=== PATIENT | female | born 1935 | race Caucasian/White ===

== ENCOUNTER 2017-06-28 09:59 | Inpatient (IN) | payer MEDICARE ==
--- NOTE | 2017-06-28 12:07 | CON ---
DATE OF CONSULTATION: 06/28/2017 REASON FOR CONSULTATION: Left hip pain. HISTORY OF PRESENT ILLNESS: This is a very pleasant woman who is 82 years of age, she got out of bed today and fell onto her left hip. PAST MEDICAL HISTORY: Positive for hypertension, high cholesterol, dementia. SOCIAL HISTORY: Does not smoke. She does not drink. She has excellent social support. She is a ho usehold only ambulator with the assistance of a walker. MEDICATIONS: Listed in the chart. PHYSICAL EXAMINATION: GENERAL: Shows a pleasant woman who is in no distress. She is actually able to answer some question s, but seems to be fairly confused. HEENT: Normocephalic, atraumatic. LUNGS: Clear. HEART: Regular rate and rhythm. ABDOMEN: Soft, nontender. EXTREMITIES: Left hip shows shortening external rotation, tender to manipulation, she has intact DP and PT pulses. No skin lesions. IMAGING DATA: Radiographs show a displaced femoral neck fracture. PLAN: Hemiarthroplasty of hip. She and her family understand risk of infection, stiffness, nerve or blood vessel damage, blood clots, transfusion, , dislocation and would like to proceed with waldo valladares.
[2017-06-28] MEDS ORDERED: CEFAZOLIN/Water 2 GM/20 ML SYRINGE ONE (12:13)
[2017-06-28] MEDS ORDERED: Vancomycin HCl 1.5 GM in Sodium Chloride 0.9% 250 ML 300 ML IVPB SCH (12:30)
[2017-06-28] MEDS ORDERED: Sodium Chloride 0.9% 1,000 ML IV SCH ×2 (12:30→18:20)
[2017-06-28 12:43] LABS: PTT 30.5 SEC (22.9-36.1); Prothrombin Time 13.3 SEC (12.0-14.7)
[2017-06-28] MEDS ORDERED: Tranexamic Acid 1,000 MG/100 ML BAG ONE (13:37)
[2017-06-28] MEDS ORDERED: Fentanyl 100 MCG/2 ML VIAL ONE ×2 (13:57→14:11)
[2017-06-28] MEDS ORDERED: Ondansetron ODT 4 MG TAB PO PRN ×2 (15:54→15:58)
[2017-06-28] MEDS ORDERED: Milk Of Magnesia 30 ML UDCUP PO PRN ×2 (15:54→15:58)
[2017-06-28] MEDS ORDERED: Bisacodyl 10 MG SUPP PR PRN ×2 (15:54→15:58)
[2017-06-28] MEDS ORDERED: Cepastat Lozenges 1 LOZ PO PRN ×2 (15:54→15:58)
[2017-06-28] MEDS ORDERED: Ondansetron HCl/PF 4 MG/2 ML Vial IVP PRN ×3 (15:54→16:11)
[2017-06-28] MEDS ORDERED: Fleet Enema 133 ML BOT PR PRN ×2 (15:54→15:58)
[2017-06-28] MEDS ORDERED: Fentanyl 100 MCG/2 ML VIAL SLOW IVP PRN (15:54)
[2017-06-28] MEDS ORDERED: Aspirin 81 mg Enteric Coated Tablet PO SCH (16:00)
[2017-06-28] MEDS ORDERED: Tranexamic Acid 1,000 MG in Sodium Chloride 0.9% 100 ML IVPB SCH (16:00)
[2017-06-28] MEDS ORDERED: D5 1/2 NS w/20 mEq KCL 1,000 ML IV SCH (16:00)
[2017-06-28] MEDS ORDERED: Promethazine HCl 25 MG/ML VIAL IM PRN (16:11)
[2017-06-28] MEDS ORDERED: Promethazine HCl 25 MG/ML VIAL SLOW IVP PRN (16:11)
--- NOTE | 2017-06-28 16:14 | CON ---
DATE OF SERVICE: 06/28/2017 TRAUMA CONSULT Please see Anais Worley NP complete history of present illness. BRIEF HISTORY: This is an 82-year-old female who sustained a left hip fracture and a fall and transf erred to [facility] for higher level of care. Hemodynamically stable. No other complaints. She is confused, which makes the history difficulty. She is unsure of her home medications or chronic medic al history. PHYSICAL EXAMINATION: GENERAL: She is awake and alert, although confused. CHEST: Bilateral clear. HEART: Regular rate and rhythm. BREAST: She has obvious right mastectomy in the past. ABDOMEN: Soft, tenderness in the left hip. EXTREMITIES: Left lower extremity shortened, externally rotated, but palpable radial and palpable do rsalis pedis pulses. No obvious limb threatening ischemia. ASSESSMENT: Left hip fracture. PLAN: Plan per ortho, trauma to admit. See Anais Worley NP note.
--- NOTE | 2017-06-28 17:26 | RAD ---
TWO VIEWS OF THE LEFT HIP: INDICATION: Post-op left hip. COMPARISON: Two views of the left hip dated 06/28/2017. FINDINGS: Since the comparison examination, there has been interval placement of a left hip endoprosthesis. Th e prosthetic component projects in the expected position. IMPRESSION: Postoperative left hip. POS: NASEEM
--- NOTE | 2017-06-28 17:30 | HP ---
DATE OF ADMISSION: 06/28/2017 ADMITTING PHYSICIAN: Dr. Hiren Hayward. CONSULTING PHYSICIAN: Dr. Sravan Soni, Orthopedic. HISTORY OF PRESENT ILLNESS: An 82-year-old female, who was in her usual state of health this morning when she apparently had a fall getting out of bed. She lives at home with her daughter and daughter reports that she heard her mother fall and then went to the bedroom and found her on the floor. She was complaining of left hip pain. She was transported by ambulance to [facility], where left hip fracture was identified. She was then transferred to [place] for higher level of care. She is now seen in the ER, by Trauma Services. She complains of pain to the left hip. She has been hemodynamically stable. Neurologically, she has remained at baseline. Pain is worse with movement of left leg. The patient's pain is relieved by nothing. She is unable to quantify the pain or describe the quality of the pain. REVIEW OF SYSTEMS: The patient is unable to participate with review of systems due to baseline dementia. PAST MEDICAL HISTORY: Diabetes type 2, hypertension, dementia. PAST SURGICAL HISTORY: Right mastectomy, hysterectomy, cholecystectomy, unknown years. SOCIAL HISTORY: Family denies intake of alcohol, drugs or tobacco. Patient lives at home with her daughter. FAMILY HISTORY: Unknown. ALLERGIES: No known drug allergies. CURRENT MEDICATIONS: 1. Losartan 25 mg once daily. 2. Metformin 500 mg once daily. 3. Citalopram 20 mg once daily. 4. Hydrochlorothiazide 12.5 mg once daily. 5. Temazepam 15 mg once daily. PHYSICAL EXAMINATION: VITAL SIGNS: Blood pressure 152/72, pulse 73, respirations 22, temperature 98.3 , and O2 sat 98%. CONSTITUTIONAL: Elderly female in no acute distress. Lying on bed. Able to answer questions, but remains confused. HEENT: Atraumatic, normocephalic. RESPIRATORY: Respirations even and unlabored. Expiratory wheezes heard in bilateral upper lobes. CARDIOVASCULAR: Regular rate and rhythm. Heart sounds normal. ABDOMEN: Soft, nontender, nondistended. Bowel sounds present. EXTREMITIES: With the exception of the left lower extremities are free from visible trauma. Cap refill is brisk. Neurovascularly intact. Left lower extremity pain with movement or palpation to left lateral hip area, rotated laterally. Pulses 2+. NEUROLOGIC: GCS 14. [id number]. ASSESSMENT: 1. An 82-year-old female status post ground level fall. 2. Left displaced femoral neck fracture. PLAN: 1. Admit to hospital by Trauma Services. 2. Consult to Orthopedics, Dr. Soni. Dr. Soni currently at bedside. 3. OR today with Dr. Soni. 4. N.p.o. until after operative procedure. 5. Hospital medicine consult for general medical management. Assessment and plan of care were discussed with the patient, her daughter, and her family at bedside. All are in agreement. The patient was seen and examined with attending trauma surgeon, Dr. Tolu Hayward, who agrees with the assessment and plan of care. VIRGEN
[2017-06-28] MEDS ORDERED: Dextrose 5% in Water 1,000 ML IV PRN (18:20)
[2017-06-28] MEDS ORDERED: Dextrose 50% Abboject 50 ML SYRINGE SLOW IVP PRN (18:20)
[2017-06-28] MEDS ORDERED: Acetaminophen 1,000 MG in Premix Bag 1 BAG IVPB SCH (20:00)
[2017-06-28] MEDS ORDERED: Famotidine/PF 20 mg/2ml Vial SLOW IVP SCH (21:00)
[2017-06-28] MEDS ORDERED: Senokot S 8.6-50 MG TAB PO SCH (21:00)
[2017-06-28] MEDS ORDERED: Ferrous Gluconate 324 MG TAB PO SCH (21:00)
[2017-06-28] MEDS: traMADol HCl 50 MG TAB PO PRN (21:12)
[2017-06-28] MEDS: Senokot S 8.6-50 MG TAB PO SCH (21:12)
[2017-06-28] MEDS: Ferrous Gluconate 324 MG TAB PO SCH (21:13)
[2017-06-28] MEDS: CEFAZOLIN/Water 2 GM/20 ML SYRINGE SLOW IVP SCH (21:18)
[2017-06-28] MEDS: Ondansetron HCl/PF 4 MG/2 ML Vial IVP PRN (21:29)
[2017-06-28] MEDS: Sodium Chloride 0.9% 1,000 ML IV SCH (23:04)
[2017-06-28] MEDS: Acetaminophen 500 MG TAB PO SCH (23:28)
[2017-06-29] MEDS: CEFAZOLIN/Water 2 GM/20 ML SYRINGE SLOW IVP SCH (03:24)
[2017-06-29] MEDS: traMADol HCl 50 MG TAB PO PRN ×2 (04:07→20:12)
[2017-06-29] MEDS: Ondansetron HCl/PF 4 MG/2 ML Vial IVP PRN ×2 (04:11→17:36)
[2017-06-29 05:29] LABS: #Lymphocytes 0.5 thou/uL (1.20-3.40); #Monocytes 0.4 thou/uL (0.11-0.59); #Neutrophils 6.4 thou/uL (1.40-6.50); %Basophils 0.3 % (0.0-1.0); %Eosinophils 0.1 % (0.0-10.0); %Lymphocytes 7.2 % (21.0-51.0); %Monocytes 4.9 % (0.0-10.0); %Neutrophils 87.5 % (42.0-75.0); Mean Corpuscular HGB CONC 32.9 g/dL (32.0-36.0); Mean Corpuscular Hemoglobin 28.6 pg (27.0-31.0); Mean Corpuscular Volume 86.9 fl (81.0-99.0); Mean Platelet Volume 7.5 fL (7.4-10.4); Platelet Count 133 thou/uL (130-400); RBC Distribution Width 13.5 % (11.5-14.5); Red Blood Cell (RBC) Count 3.49 mill/uL (4.20-5.40); White Blood Cell (WBC) Count 7.3 thou/uL (4.8-10.8)
[2017-06-29 05:34] LABS: Mean Corpuscular HGB CONC 32.4 g/dL (32.0-36.0); Mean Corpuscular Hemoglobin 28.1 pg (27.0-31.0); Mean Corpuscular Volume 86.9 fl (81.0-99.0); Mean Platelet Volume 7.8 fL (7.4-10.4); Platelet Count 140 thou/uL (130-400); RBC Distribution Width 13.6 % (11.5-14.5); Red Blood Cell (RBC) Count 3.54 mill/uL (4.20-5.40); White Blood Cell (WBC) Count 7.3 thou/uL (4.8-10.8)
[2017-06-29 05:45] LABS: Anion Gap 16 mmol/L (10-20); BUN (Urea Nitrogen) 28 mg/dL (9.8-20.1); Calc. Creatinine Clearance 24 mL/min (70-130); Calcium 9.3 mg/dL (7.8-10.44); Carbon Dioxide 18 mmol/L (23-31); Chloride 109 mmol/L (98-107); Estimated GFR-MDRD 26; Glucose 116 mg/dL (83-110); Potassium 3.5 mmol/L (3.5-5.1); Sodium 139 mmol/L (136-145)
[2017-06-29] MEDS ORDERED: Acetaminophen 1,000 MG in Premix Bag 1 BAG IVPB SCH (06:30)
[2017-06-29] MEDS: Acetaminophen 500 MG TAB PO SCH ×2 (06:50→12:21)
[2017-06-29] MEDS: Ferrous Gluconate 324 MG TAB PO SCH ×2 (08:42→20:12)
[2017-06-29] MEDS: Senokot S 8.6-50 MG TAB PO SCH ×2 (08:43→20:12)
[2017-06-29] MEDS: Multivitamin W/ Minerals 1 TAB PO SCH (08:43)
[2017-06-29] MEDS ORDERED: Multivitamin W/ Minerals 1 TAB PO SCH (09:00)
--- NOTE | 2017-06-29 11:04 | PRG ---
DATE OF SERVICE: 06/29/2017 SUBJECTIVE: Ms. Newton is an 82-year-old woman who is postoperative day #1, status post left hip art hroplasty following a fall and subsequent fractured left hip. The patient is awake and alert. She r eports adequate pain control. She had a transient episode of nausea immediately postoperatively. Sh erick is currently tolerating a general diet and having normal bowel and urinary function. PHYSICAL EXAMINATION: VITAL SIGNS: Includes blood pressure 148/72, pulse 78, respiratory rate is 18, temperature is 98.6 d egrees Fahrenheit, oxygen saturation is 94% on room air. HEENT: Reveals normocephalic and atraumatic. Pupils equal, round, reactive to light and accommodati on. Extraocular muscles are intact bilaterally. No sclerae icterus is present. Oral mucosa is pink and moist. No lesions are noted. NECK: Supple. No palpable lymphadenopathy or thyromegaly present. HEART: Reveals regular rate and rhythm, no murmurs or gallops auscultated. LUNGS: Clear to auscultation bilaterally. Breathing is regular and unlabored. ABDOMEN: Soft, nontender, nondistended. EXTREMITIES: Reveals 2+ radial and pedal pulses bilaterally. No ankle edema is present. NEUROLOGIC: Reveals no focal deficits present. PERTINENT LABORATORY FINDINGS: Today includes CBC with 7300 white blood cells, hemoglobin and hemato crit are stable at 10.0 and 30.8 respectively. Platelet count is stable at 140,000. Metabolic profi le: Sodium 139, potassium is 3.5, chloride is 109, bicarbonate 18, BUN 28, creatinine is 1.83, gluco se 116. IMPRESSION: 1. Postoperative day #1, status post left hip arthroplasty. 2. Acute on chronic renal insufficiency. 3. Initiate physical and occupational therapy. 4. Monitor BUN and creatinine, as well as urinary output as end point of resuscitation. The patient will be seen by PM&R in anticipation for transfer to inpatient rehabilitation.
[2017-06-29] MEDS: Acetaminophen 1,000 MG in Premix Bag 1 BAG IVPB SCH ×3 (12:33→23:16)
[2017-06-29] MEDS: Sodium Chloride 0.9% 1,000 ML IV SCH (13:54)
[2017-06-29] MEDS: Famotidine/PF 20 mg/2ml Vial SLOW IVP SCH (20:11)
[2017-06-30 05:39] LABS: Hemoglobin 8.4 g/dL (12.0-16.0); Mean Corpuscular HGB CONC 32.6 g/dL (32.0-36.0); Mean Corpuscular Hemoglobin 28.7 pg (27.0-31.0); Mean Platelet Volume 7.8 fL (7.4-10.4); Platelet Count 120 thou/uL (130-400); RBC Distribution Width 13.6 % (11.5-14.5); Red Blood Cell (RBC) Count 2.92 mill/uL (4.20-5.40); White Blood Cell (WBC) Count 4.8 thou/uL (4.8-10.8)
[2017-06-30] MEDS: Acetaminophen 1,000 MG in Premix Bag 1 BAG IVPB SCH ×2 (07:02→11:40)
[2017-06-30] MEDS: traMADol HCl 50 MG TAB PO PRN ×2 (07:02→18:09)
[2017-06-30] MEDS: Ferrous Gluconate 324 MG TAB PO SCH ×2 (08:56→20:14)
[2017-06-30] MEDS: Senokot S 8.6-50 MG TAB PO SCH ×2 (08:56→20:14)
[2017-06-30] MEDS: Multivitamin W/ Minerals 1 TAB PO SCH (08:56)
[2017-06-30 09:36] LABS: #Eosinphils 0.1 thou/uL (0.0-0.7); #Lymphocytes 0.5 thou/uL (1.20-3.40); #Monocytes 0.3 thou/uL (0.11-0.59); #Neutrophils 4.1 thou/uL (1.40-6.50); %Basophils 0.2 % (0.0-1.0); %Eosinophils 1.6 % (0.0-10.0); %Lymphocytes 9.8 % (21.0-51.0); %Monocytes 5.2 % (0.0-10.0); %Neutrophils 83.2 % (42.0-75.0); Hemoglobin 8.7 g/dL (12.0-16.0); Mean Corpuscular HGB CONC 32.9 g/dL (32.0-36.0); Mean Corpuscular Hemoglobin 28.8 pg (27.0-31.0); Mean Corpuscular Volume 87.8 fl (81.0-99.0); Mean Platelet Volume 7.6 fL (7.4-10.4); Platelet Count 118 thou/uL (130-400); RBC Distribution Width 13.5 % (11.5-14.5); Red Blood Cell (RBC) Count 3.03 mill/uL (4.20-5.40); White Blood Cell (WBC) Count 4.9 thou/uL (4.8-10.8)
[2017-06-30 09:53] LABS: Anion Gap 8 mmol/L (10-20); BUN (Urea Nitrogen) 25 mg/dL (9.8-20.1); Calc. Creatinine Clearance 28 mL/min (70-130); Calcium 8.9 mg/dL (7.8-10.44); Carbon Dioxide 22 mmol/L (23-31); Chloride 109 mmol/L (98-107); Estimated GFR-MDRD 32; Glucose 179 mg/dL (83-110); Potassium 3.4 mmol/L (3.5-5.1); Sodium 136 mmol/L (136-145)
--- NOTE | 2017-06-30 09:55 | OP ---
DATE OF PROCEDURE: 06/28/2017 PREOPERATIVE DIAGNOSIS: Left hip displaced femoral neck fracture. POSTOPERATIVE DIAGNOSIS: Left hip displaced femoral neck fracture. OPERATIVE PROCEDURE: Press-fit left hip monopolar hemiarthroplasty. SURGEON: Sravan Soni M.D. NURSING CLINICAL DIRECTOR: Rohan Renee PA-C. ANESTHESIA: General via endotracheal tube augmented with indwelling epidural. COMPONENTS USED: [facility] size 1 press fit Accolade hip stem with a 45 mm monopolar metal lic femoral head. ESTIMATED BLOOD LOSS: Less than 100 mL. FINDINGS: Femoral neck fracture as described on radiograph and hemarthrosis and capsule. DRAINS: None. SPECIMENS: None. COMPLICATIONS: None. COUNTS: Correct. INDICATIONS FOR SURGERY: Jael is an 82-year-old female who fell the day prior to admission resulting in a left femoral neck fracture. She was admitted by the Trauma Team and our service was consulted for operative management of her hip fracture. PROCEDURE IN DETAIL: After informed consent was obtained in the preoperative holding area, the patie nt received preoperative antibiotics, was taken to the operative suite, and positioned appropriately on the operating table in the lateral decubitus position. The hip was then prepped and draped in usu al sterile fashion. Prior to incision, a time out was called and all members of the surgical team ag vinnie upon site, surgeon, and patient. Once this was completed, an incision was made using a lateral approach two fingerbreadths above the tip of the trochanter and two fingerbreadths below the flare by palpation. The subcutaneous layer was opened with Bovie electrocautery and the IT band was encounte red. This was identified and a chau elevator was used to remove the adipose tissue from it. Once it was cleaned, Bovie and scissors were used to incise the IT band, exposing the lateral aspect of the t rochanter and the abductor muscles. The abductor muscles were then reflected using Bovie electrocaut zay. The gluteus medius was also then reflected anteriorly and Charnley retractor was placed to hold this open. An anterior capsulotomy was performed identifying the fracture hematoma at that time. O nce the capsulotomy was completed, the neck cut was then made using the oscillating saw. Once the na pkin ring of bone was removed using ronquintin Pickardell, the femoral head was then removed using a corksc rew combination with Hohmann retractors. The appropriate size was then chosen and this was trialed a nd attention was then turned to femoral preparation. The cookie cutter was used followed by intramed ullary reamers and sequential broaching up to the appropriate size of press fit stem. Once this was completed, we had good calcar fit and one fingerbreadth above the top of the lesser trochanter. We t hen malleted in the appropriate sized femoral prosthesis using a good strong press fit. Happy with o ur fit, we went ahead and trialed up to the appropriate neck length using shuck, internal and externa l rotation, and other maneuvers to identify good solid hip fit and finish, and without any dislocatio n at greater than 50-60 degrees of internal rotation with the hip flexed to 90 degrees. [place] was ne gative as well. We then selected the appropriate neck length and endoprosthesis malleted firmly into the Rondon taper. A reduction maneuver was then performed and we copiously irrigated the entire woun d with normal saline. Again, we ran the hip through hip internal and external rotation flexed at 90 degrees and shuck being negative. After copious irrigation of three liters of normal saline, the abd uctors were then reapproximated and stitched down using #2 Vicryl. The IT band was approximated with #2 Vicryl and closed with a running #2 Quill polypropylene stitch and subcutaneous layer was closed with a running 0 Quill stitch and skin closure was accomplished with 3-0 Monocryl Quill stitch and De rmabond skin cement. All counts were correct. A sterile dressing was applied and the procedure was terminated without any complications. The airway was removed in the operative suite and the patient was taken to recovery room in stable condition.
[2017-06-30] MEDS: Ondansetron HCl/PF 4 MG/2 ML Vial IVP PRN (11:43)
--- NOTE | 2017-06-30 11:50 | RAD ---
RADIOGRAPH CHEST 1 VIEW: Date: 06/30/17. Time: 9:17 a.m. HISTORY: An 82-year-old female with cough and dyspnea. COMPARISON: 06/28/17, 8:31 a.m. FINDINGS: Again, the right lung is hypoinflated. There is better aeration of the left lung base now compared t o previously, and currently all of the visualized left lung bills are clear. There is a new finding of a large amount of gas distending the hepatic flexure of the colon. There is colonic interpositio n between the diaphragm and the right lobe of the liver. There is subsegmental atelectasis in the ad jacent right lung base. No pulmonary edema. No pneumothorax. IMPRESSION: 1. Gaseous distention of the colon. 2. Colonic interposition 3. Mildly elevated right hemidiaphragm. 4. Subsegmental atelectasis at the right lung base. 5. No consolidation or pulmonary edema identified. BRITNEY [] POS: NASEEM
[2017-06-30] MEDS ORDERED: Potassium Chloride 20 MEQ TAB PO SCH (17:45)
[2017-06-30] MEDS ORDERED: Furosemide 40 MG/4 ML VIAL SLOW IVP SCH (17:45)
--- NOTE | 2017-06-30 18:52 | PRG ---
DATE OF SERVICE: 06/30/2017 ATTENDING PHYSICIAN: Patrick Fried M.D. This is Anais Worley NP dictating a daily progress note for Dr. Patrick Fried. SUBJECTIVE: An 82-year-old female, postoperative day #2, status post left hip hemiarthroplasty. Patient is seen this morning on rounds with Dr. Fried. Initially, patient managed on surgical floor. She had been progressing favorably. This morning, she has developed some shortness of breath with increasing oxygen requirements. She also has cough which her daughter states that she had prior to coming to the hospital. As patient was having these symptoms, EKG and chest x-ray was done and Dr. Alegre of Pulmonary Medicine was consulted. OBJECTIVE: VITAL SIGNS: This morning temperature 98.1, pulse 72, respirations 20, O2 sat 93% on 3 liters, blood pressure 144/69. CONSTITUTIONAL: Elderly female experiencing increased work of breathing. HEENT: Normocephalic, atraumatic. PULMONARY: O2 sat 93% on 3 liters O2. Diminished bilaterally. CARDIOVASCULAR: Regular rate and rhythm. ABDOMEN: Soft, nontender, and nondistended. EXTREMITIES: Moves all extremities. 2+ pulses peripherally. Cap refill brisk. NEUROLOGIC: Patient with periods of confusion. GCS 14, E4 V4 M6. ASSESSMENT: 1. Postoperative day #2, status post left hip arthroplasty. 2. Increased work of breathing, requiring increase in oxygen. 3. Elevated creatinine, improving. PLAN: 1. Transfer to [facility]. 2. Appreciate Pulmonary Medicine, Dr. Eric consult. 3. Begin DVT prophylaxis if okay with Pulmonary Medicine. 4. PT/OT as tolerated. The patient was seen and examined with Dr. Patrick Fried who agrees with the assessment and plan. [facility]
--- NOTE | 2017-06-30 19:19 | CON ---
DATE OF CONSULTATION: 06/30/2017 SERVICE: Pulmonary Medicine. REASON FOR CONSULTATION: Respiratory failure. HISTORY OF PRESENT ILLNESS: The patient is an 82-year-old white female with past medical history sig nificant for dementia. She was in her usual state of health when she sustained a fall. She ended up breaking her femur. She is postop day #2 from a fixation procedure. She was recovering very nicely , but this morning, she was increasingly altered. She was sedated. She had increasing periods of sl eeping. The patient uses oxygen at night while sleeping because of some likely central apneas. It w as on her when she fell asleep. She ended up having intermittent episodes of hypoxemia. She was sub sequently placed on 2 liters nasal cannula. Because of this and her increasing confusion, I was cons ulted. She is somnolent during my evaluation, but when she wakes up with start and answers a couple of questions and then drifts off back to sleep. She is quite easy to arouse. She does not look to b e in any significant distress at this time. She cannot provide any additional elements of the histor y. PAST MEDICAL HISTORY: 1. Type 2 diabetes mellitus. 2. Hypertension. 3. Dementia. PAST SURGICAL HISTORY: 1. Right mastectomy. 2. Hysterectomy. 3. Cholecystectomy. SOCIAL HISTORY: Negative for alcohol, tobacco or illicit drug use. She is currently living at home. At this point, she can drive, due to finances because of her cognitive impairment. She is able to walk under her own strength at home, but has been spending less than last time on her feet over the l ast couple of months. She has no exposure to chemicals, dust, asbestos or tuberculosis. FAMILY HISTORY: Noncontributory. ALLERGIES: No known drug allergies. MEDICATIONS: List of her outpatient and inpatient medications were reviewed in the medical record. One small specific update was made at this time. REVIEW OF SYSTEMS: Currently, the patient is somnolent and this is difficult to obtain. PHYSICAL EXAMINATION: VITAL SIGNS: Afebrile, pulse 62, blood pressure 164/55, respirations 20, saturation 100% on 3 liters nasal cannula while awake. When she drifts off to sleep, she drops down into the lower 90s and uppe r 80s. HEENT: Normocephalic, atraumatic. Sclerae are white, conjunctivae pink. Oral and nasal mucosa is m oist without lesions. LUNGS: Decent air entry. There is no prolonged expiratory phase or wheezing identified. Rhonchi ar e present bilaterally. Crackles are also evident in the bibasilar region and worse on the right. HEART: Normal rate, regular. ABDOMEN: Soft, nontender, nondistended. Bowel sounds are positive. MUSCULOSKELETAL: No cyanosis or clubbing. There is trace pitting in the leg that was cut. Otherwis e, there is no significant edema throughout. GENITOURINARY: Wyatt catheter is in place. NEUROLOGIC: Grossly nonfocal. LABORATORY DATA: WBC 4.9, hemoglobin 8.7 and stable, platelets 118,000 and gently down trending. IN R 1.0. Creatinine 1.56 and down trending, BUN 25. Potassium 3.4. IMAGING: Chest x-ray demonstrates atelectasis of the right lower lung base. There is decreased lung volumes on the right. No consolidation or pulmonary edema is identified. The colon is distended. ASSESSMENT: 1. Acute hypoxic respiratory failure secondary to atelectasis of the right lower lobe. 2. Colon distention. 3. Central sleep apnea. 4. Delirium, suspected. PLAN: I do not suspect that we are dealing with a pulmonary embolism or with a fat embolism at this time. That being said, I would like to move her down to the IMCU for closer observation. If she rem ains stable for period of 24-48 hours, we can move her right back upstairs to the surgical unit. We will initiate Lovenox for DVT prophylaxis. I will give her one small dose of Lasix, though I think t hat the crackles are appreciated, most likely secondary to the atelectasis and not true volume overlo ad. That being said, I feel that she could probably tolerate dose. We will work on mobilizing her a nd removed the Wyatt catheter. Potassium will be replaced.
[2017-06-30] MEDS: Famotidine/PF 20 mg/2ml Vial SLOW IVP SCH (20:12)
[2017-06-30] MEDS: Enoxaparin Sodium 30 MG/0.3 ML SYRINGE SC SCH (20:15)
[2017-07-01 04:57] LABS: Hemoglobin 8.9 g/dL (12.0-16.0); Mean Corpuscular HGB CONC 32.9 g/dL (32.0-36.0); Mean Corpuscular Hemoglobin 28.8 pg (27.0-31.0); Mean Corpuscular Volume 87.7 fl (81.0-99.0); Mean Platelet Volume 7.9 fL (7.4-10.4); Platelet Count 132 thou/uL (130-400); RBC Distribution Width 13.5 % (11.5-14.5); White Blood Cell (WBC) Count 4.9 thou/uL (4.8-10.8)
[2017-07-01 04:58] LABS: Anion Gap 11 mmol/L (10-20); BUN (Urea Nitrogen) 22 mg/dL (9.8-20.1); Calc. Creatinine Clearance 31 mL/min (70-130); Calcium 9.3 mg/dL (7.8-10.44); Carbon Dioxide 26 mmol/L (23-31); Chloride 105 mmol/L (98-107); Estimated GFR-MDRD 35; Glucose 107 mg/dL (83-110); Magnesium 1.9 mg/dL (1.6-2.6); Phosphorus 2.4 mg/dL (2.3-4.7); Potassium 3.5 mmol/L (3.5-5.1); Sodium 138 mmol/L (136-145)
[2017-07-01] MEDS: Multivitamin W/ Minerals 1 TAB PO SCH ×2 (07:33→09:50)
[2017-07-01] MEDS: Ferrous Gluconate 324 MG TAB PO SCH ×3 (07:33→20:56)
[2017-07-01] MEDS: Senokot S 8.6-50 MG TAB PO SCH ×3 (07:33→20:57)
[2017-07-01] MEDS ORDERED: Furosemide 20 MG/2 ML VIAL SLOW IVP SCH (08:15)
[2017-07-01] MEDS ORDERED: Acetaminophen 650 MG Suppository PR SCH (11:00)
[2017-07-01] MEDS ORDERED: Acetaminophen 500 MG TAB PO SCH (12:00)
[2017-07-01] MEDS: Furosemide 20 MG/2 ML VIAL SLOW IVP SCH (16:09)
[2017-07-01] MEDS ORDERED: Magnesium 2 GM/NS 0.9% 100 ML 2 GM in Premix Bag 1 BAG IVPB SCH (16:45)
[2017-07-01] MEDS ORDERED: Potassium Phosphate 30 MMOL, Magnesium Sulfate 2 GM in Sodium Chloride 0.9% 250 ML 250 ML IVPB SCH (16:45)
--- NOTE | 2017-07-01 17:06 | PRG ---
DATE OF SERVICE: 07/01/2017 SUBJECTIVE: Ms. Newton is postoperative day #3 status post left hip hemiarthroplasty. She was trans ferred to the Intermediate Care Unit overnight due to some complaint of shortness of breath. She was treated with one dose of Lasix and has done well since. She did not have any arrhythmias overnight. She denies any chest pain, syncope or dyspnea at the time of this evaluation. PHYSICAL EXAMINATION: VITAL SIGNS: Today includes blood pressure 145/63, pulse is 90, respiratory rate is 20, maximum temp erature in the last 24 hours is 100 degrees Fahrenheit, oxygen saturation is 98% on 2 liters by nasal cannula oxygen. HEENT: Examination reveals normocephalic and atraumatic. Pupils are equal, round, and reactive to l ight and accommodation. Extraocular muscles are intact bilaterally. She has no sclerae icterus pres ent. NECK: No jugular venous distention is noted. HEART: Reveals regular rate and rhythm, no murmurs or gallops auscultated. CHEST: Clear to auscultation bilaterally. Breathing is regular and unlabored. ABDOMEN: Soft, nontender and nondistended. EXTREMITIES: There are 2+ radial and pedal pulses bilaterally. No ankle edema is present. NEUROLOGIC: Examination reveals no focal deficits present. LABORATORY DATA: Urinary output has been adequate. Metabolic profile today includes sodium 138, pot assium is 3.5, chloride is 105, bicarbonate 26, BUN 22, creatinine is 1.45, glucose is 107, magnesium 1.9, and phosphorus is 2.4. CBC with 4900 white blood cells, hemoglobin and hematocrit are stable a t 8.9 and 27.2 respectively, platelet count is 132,000. IMPRESSION: 1. Postoperative day #2, status post left hemiarthroplasty. 2. Stable acute blood loss anemia. 3. Acute hypokalemia. 4. Acute hypomagnesemia. 5. Acute hypophosphatemia. PLAN: 1. Correct abnormal electrolytes. 2. Continue with iron replacement therapy as well as vitamin C. 3. Increase activity per physical and occupational therapy in anticipation for inpatient rehabilitat ion. 4. Above findings and plan discussed with the patient who indicates understanding of the information provided. 5. If stable, patient will either be transferred to rehab tomorrow or to general surgical floor.
[2017-07-01] MEDS: traMADol HCl 50 MG TAB PO PRN (18:44)
--- NOTE | 2017-07-01 20:52 | PRG ---
DATE OF SERVICE: 07/01/2017 SERVICE: Pulmonary Medicine. INTERVAL HISTORY: The patient is doing great from a respiratory standpoint. Her mentation is much i mproved today. She could not recognize her daughter, or her grandchildren yesterday. Today, she is having a better day from a mentation standpoint. Her breathing is improved. She seems to tolerate L asix yesterday fairly well. PHYSICAL EXAMINATION: VITAL SIGNS: Afebrile with a T-max of 99.9, pulse 77, blood pressure 147/72, respirations 20, satura tion 98% back on room air. GENERAL: Patient is awake, alert, in no apparent distress. LUNGS: Decent air entry. There is no prolonged expiratory phase or wheezing present. HEART: Normal rate, regular. ABDOMEN: Soft, nontender, nondistended. Bowel sounds are positive. MUSCULOSKELETAL: No cyanosis or clubbing. No pitting in the bilateral lower extremities. NEUROLOGIC: Nonfocal. LABORATORY DATA: WBC 4.9, hemoglobin 8.9, platelets 132,000. Creatinine 1.45 and gently down trendi ng. Basic metabolic profile is otherwise unremarkable. Magnesium and phosphorus are normal. BNP wa s elevated this afternoon. Respiratory virus panel from yesterday was positive for RSVB. ASSESSMENT: 1. Acute hypoxic respiratory failure secondary to atelectasis of the right lower lobe, resolved. 2. Central sleep apnea. 3. Delirium, sedated. 4. Colon distention. 5. Upper respiratory tract infection secondary to respiratory syncytial virus B. PLAN: The patient has made a remarkable recovery over the past 24 hours. I think that most of what we are seeing is a delirium with waxing and waning unconsciousness. At this point, I do not think thelma suarez has further requirements for inpatient Pulmonary or Critical Care opinion. As such, I will sign of f. Please call with additional questions or concerns moving forward.
[2017-07-01] MEDS: Enoxaparin Sodium 30 MG/0.3 ML SYRINGE SC SCH (20:55)
[2017-07-01] MEDS: Ascorbic Acid 500 mg Chewable Tablet PO SCH ×2 (20:56)
[2017-07-01] MEDS: Famotidine 20 MG TAB PO SCH (20:57)
[2017-07-01] MEDS ORDERED: hydrALAZINE 20 MG/ML VIAL SLOW IVP PRN (23:24)
--- NOTE | 2017-07-01 23:55 | PRG ---
DATE OF SERVICE: 07/01/2017 SUBJECTIVE: This is an 82-year-old female postop day #3 status post left hip hemiarthroplasty. The patient was transferred to [facility] yesterday for shortness of breath and diuresed. She is currently on room air. She has been intermittently refusing medications. She states she feels she is too weak; h owever, she has been taking her pain medications. The patient has no other complaints at this time. OBJECTIVE: VITAL SIGNS: Reviewed and stable. T-max 100 degrees Fahrenheit. The patient is currently 95% on ro om air. GENERAL: Resting in bed in no acute distress. RESPIRATORY: Breathing appears nonlabored. ASSESSMENT: As documented in daily progress note. PLAN: Continue care as ordered. Recheck electrolytes in a.m. Continue to monitor. The patient enc ouraged to take medications p.o. as ordered.
[2017-07-02] MEDS: traMADol HCl 50 MG TAB PO SCH ×5 (00:26→23:08)
[2017-07-02] MEDS: Acetaminophen 500 MG TAB PO SCH ×5 (00:26→23:08)
[2017-07-02 04:26] LABS: Anion Gap 12 mmol/L (10-20); BUN (Urea Nitrogen) 25 mg/dL (9.8-20.1); Calc. Creatinine Clearance 29 mL/min (70-130); Calcium 8.8 mg/dL (7.8-10.44); Carbon Dioxide 26 mmol/L (23-31); Chloride 102 mmol/L (98-107); Estimated GFR-MDRD 33; Glucose 124 mg/dL (83-110); Magnesium 2.8 mg/dL (1.6-2.6); Phosphorus 5.5 mg/dL (2.3-4.7); Potassium 3.2 mmol/L (3.5-5.1); Sodium 137 mmol/L (136-145)
[2017-07-02] MEDS ORDERED: traMADol HCl 50 MG TAB PO PRN (06:00)
[2017-07-02] MEDS ORDERED: Potassium Chloride 40 MEQ in Sodium Chloride 0.9% 250 ML 250 ML IVPB SCH (07:30)
[2017-07-02] MEDS: Senokot S 8.6-50 MG TAB PO SCH ×2 (08:19→21:14)
[2017-07-02] MEDS: Ferrous Gluconate 324 MG TAB PO SCH ×2 (08:19→21:14)
[2017-07-02] MEDS: Multivitamin W/ Minerals 1 TAB PO SCH (08:19)
[2017-07-02] MEDS: Ascorbic Acid 500 mg Chewable Tablet PO SCH ×2 (08:19→21:14)
[2017-07-02] MEDS: Polyethylene Glycol 3350 17 GM Packet PO SCH (09:50)
[2017-07-02] MEDS: Furosemide 20 MG/2 ML VIAL SLOW IVP SCH (14:38)
[2017-07-02 15:06] VITALS: BMI 27.9
--- NOTE | 2017-07-02 17:24 | PRG ---
DATE OF SERVICE: 07/02/2017 SUBJECTIVE: The patient is postop day #4 from a left hip hemiarthroplasty. She is currently still o n the [facility]. Yesterday, she was diuresed again and overnight has had no issues. This morning, the pa mehul states that she feels a little "tired" and her granddaughter notes that she did not eat much of her breakfast. Otherwise, the patient states that her pain is controlled. She denies shortness of breath, chest pain or nausea. OBJECTIVE: VITAL SIGNS: Temperature is 98.6, heart rate 66, blood pressure 133/48, respirations 20 and oxygen s aturation is 92% on room air. GENERAL: The patient is sitting comfortably in bed. She appears drowsy, but will open her eyes to v erbal stimuli and will answer simple questions and follow commands. HEENT: Unremarkable. Trachea is midline. No JVD. CHEST: Clear to auscultation bilaterally. HEART: Regular rate and rhythm. ABDOMEN: Soft, flat and nontender with active bowel sounds. EXTREMITIES: Neurovascularly intact x4. Lower extremities showed less pitting edema compared to yes terday to a degree. SKIN: Actually shows wrinkles now. LABORATORY FINDINGS: This morning, sodium 137, potassium 3.2, chloride 102, CO2 of 26, BUN 25, creat inine 1.50, glucose 124, magnesium 2.8, and phosphorus 5.5. There are no radiographs to review this morning. ASSESSMENT AND PLAN: 1. Status post ground level fall. 2. Status post left hip hemiarthroplasty. Plan will be to continue physical and occupational therapy and encourage p.o. intake. We will repeat her labs in the morning and await placement decision. This case was discussed with Dr. Villegas during rounds this morning.
--- NOTE | 2017-07-02 17:27 | PRG ---
DATE OF SERVICE: 07/02/2017 SERVICE: Pulmonary Medicine. INTERVAL HISTORY: The patient is doing okay from a respiratory standpoint. She remains a little bit confused. Outside of that, there has been no interval change to her condition. She has no complain ts this morning other than general discomfort. She really cannot help me understand that. She does not know why she is in the hospital and what the situation is. PHYSICAL EXAMINATION: VITAL SIGNS: Afebrile, pulse 72, blood pressure 138/54, respirations 20, saturation 95% on room air. GENERAL: Patient is awake, alert, in no apparent distress. LUNGS: Decent air entry. There are no prolonged expiratory phase, wheezing, rhonchi or crackles. HEART: Normal rate, regular. ABDOMEN: Soft, nontender, nondistended. Bowel sounds positive. MUSCULOSKELETAL: No cyanosis or clubbing. There is trace pitting at the site of her surgery. Other side does not have pitting any longer. NEUROLOGIC: Grossly nonfocal. LABORATORY DATA: Creatinine 1.50. Potassium 3.2. Basic metabolic profile is otherwise unremarkable . Respiratory virus panel was positive for respiratory syncytial virus B. ASSESSMENT: 1. Acute hypoxic respiratory failure secondary to atelectasis of the right lower lobe, resolved. 2. Central sleep apnea. 3. Delirium with interposed sedation and agitation. 4. Upper respiratory tract infection secondary to respiratory syncytial virus B. PLAN: At this point, the patient has no further requirements for inpatient Pulmonary or inpatient Cr itical Care opinion. I will keep following as long as she remains in this location, but when she bella ves, I will be signing off. Potassium will be replaced today. Please call with additional questions or concerns.
[2017-07-02] MEDS: Famotidine 20 MG TAB PO SCH (21:14)
[2017-07-02] MEDS: Enoxaparin Sodium 30 MG/0.3 ML SYRINGE SC SCH (21:15)
--- NOTE | 2017-07-02 23:47 | PRG ---
DATE OF SERVICE: 07/02/2017 SUBJECTIVE: Jael Newton is an 82-year-old female postop day #5, left hip hemiarthroplasty. The judi ent transferred to floor from [facility] earlier today. She vocalized no complaints this evening. OBJECTIVE: VITAL SIGNS: Reviewed. The patient is afebrile. Blood pressure is stable. GENERAL: Resting in bed, in no acute distress. Breathing is nonlabored. ASSESSMENT: As documented in daily progress note. PLAN: Continue care as ordered. Continue to monitor.
[2017-07-03] MEDS: Acetaminophen 500 MG TAB PO SCH ×4 (06:20→17:29)
[2017-07-03] MEDS: traMADol HCl 50 MG TAB PO SCH ×4 (06:20→17:29)
[2017-07-03 06:21] LABS: Anion Gap 14 mmol/L (10-20); BUN (Urea Nitrogen) 24 mg/dL (9.8-20.1); Calc. Creatinine Clearance 32 mL/min (70-130); Calcium 9.3 mg/dL (7.8-10.44); Carbon Dioxide 27 mmol/L (23-31); Chloride 103 mmol/L (98-107); Estimated GFR-MDRD 37; Glucose 120 mg/dL (83-110); Magnesium 2.6 mg/dL (1.6-2.6); Phosphorus 3.4 mg/dL (2.3-4.7); Potassium 3.6 mmol/L (3.5-5.1); Sodium 140 mmol/L (136-145)
[2017-07-03] MEDS ORDERED: Magnesium Sulfate 2 GM in Sodium Chloride 0.9% 100 ML IVPB SCH (06:45)
[2017-07-03] MEDS ORDERED: Potassium Phosphate 15 MMOL in Sodium Chloride 0.9% 250 ML 250 ML IVPB SCH (07:30)
[2017-07-03] MEDS: Multivitamin W/ Minerals 1 TAB PO SCH (09:04)
[2017-07-03] MEDS: Ascorbic Acid 500 mg Chewable Tablet PO SCH ×2 (09:04→21:52)
[2017-07-03] MEDS: Senokot S 8.6-50 MG TAB PO SCH ×2 (09:04→21:52)
[2017-07-03] MEDS: Ferrous Gluconate 324 MG TAB PO SCH ×2 (09:04→21:52)
[2017-07-03] MEDS: Polyethylene Glycol 3350 17 GM Packet PO SCH (09:04)
[2017-07-03] MEDS: Ondansetron HCl/PF 4 MG/2 ML Vial IVP PRN (11:38)
--- NOTE | 2017-07-03 12:20 | PRG ---
DATE OF SERVICE: 07/03/2017 SUBJECTIVE: The patient is postop day #5 from a left hip hemiarthroplasty. She was moved yesterday from the [facility] appear to the surgical floor. The patient is under Droplet precautions for RSV positiv e nasal swab. Otherwise, the patient is doing well. Her pain is controlled. She is tolerating a di et. OBJECTIVE: VITAL SIGNS: Temperature 98.8, heart rate 82, blood pressure 162/65, respirations 18, oxygen saturat ion 95% on room air. GENERAL: The patient is resting comfortably in bed. She is awake and will answer simple questions a nd follow simple commands. HEENT: Unremarkable. HEART: Regular rate and rhythm. LUNGS: Chest is clear to auscultation bilaterally. ABDOMEN: Soft, flat, nontender with active bowel sounds. EXTREMITIES: Grossly intact x4. LABORATORY DATA: This morning, sodium 140, potassium 3.6, chloride 103, CO2 of 27, BUN 24, creatinin e 1.37, glucose 120, magnesium 2.6, phosphorus 3.4. There are no radiographs reviewed this morning. ASSESSMENT AND PLAN: 1. Status post ground level fall. 2. Status post left hip hemiarthroplasty. PLAN: Will be to continue supportive care, physical and occupational therapy and await placement. W e were informed by the case workers that the family has decided on a shelter facility and we are waiting approval for that. The patient was evaluated with Dr. Villegas this morning during rounds.
[2017-07-03] MEDS ORDERED: Fleet Enema 133 ML BOT PR SCH (12:45)
[2017-07-03] MEDS: Enoxaparin Sodium 30 MG/0.3 ML SYRINGE SC SCH (21:40)
[2017-07-03] MEDS: Famotidine 20 MG TAB PO SCH (21:52)
--- NOTE | 2017-07-03 22:14 | PRG ---
DATE OF SERVICE: 07/03/2017 SUBJECTIVE: Jael Newton is an 82-year-old female, postop day #6 hip fracture repair. The patient vo calized no complaints this evening. Pain is controlled per family at bedside. She is currently awai ting acceptance for alf facility. OBJECTIVE: VITAL SIGNS: Reviewed and stable. GENERAL: The patient is resting in bed in no acute distress. RESPIRATORY: Breathing is nonlabored. ASSESSMENT AND PLAN: As documented in daily progress note. Continue care as ordered. Continue to m onitor.
[2017-07-04] MEDS: traMADol HCl 50 MG TAB PO SCH ×5 (00:21→23:40)
[2017-07-04] MEDS: Ondansetron HCl/PF 4 MG/2 ML Vial IVP PRN (00:22)
[2017-07-04] MEDS: Acetaminophen 500 MG TAB PO SCH ×5 (00:22→23:38)
[2017-07-04 07:08] LABS: Anion Gap 14 mmol/L (10-20); BUN (Urea Nitrogen) 23 mg/dL (9.8-20.1); Calc. Creatinine Clearance 33 mL/min (70-130); Carbon Dioxide 25 mmol/L (23-31); Chloride 104 mmol/L (98-107); Estimated GFR-MDRD 39; Glucose 99 mg/dL (83-110); Magnesium 2.4 mg/dL (1.6-2.6); Phosphorus 4.2 mg/dL (2.3-4.7); Potassium 3.8 mmol/L (3.5-5.1); Sodium 139 mmol/L (136-145)
[2017-07-04] MEDS ORDERED: Hydrochlorothiazide 25 MG TAB PO SCH (09:00)
[2017-07-04] MEDS ORDERED: Citalopram 20 MG TAB PO SCH (09:00)
[2017-07-04] MEDS ORDERED: NIFEdipine XL 90 MG TAB PO SCH (09:00)
[2017-07-04] MEDS ORDERED: Losartan Potassium 25 MG TAB PO SCH (09:00)
[2017-07-04] MEDS: Ferrous Gluconate 324 MG TAB PO SCH ×2 (10:01→20:51)
[2017-07-04] MEDS: Senokot S 8.6-50 MG TAB PO SCH ×2 (10:01→20:51)
[2017-07-04] MEDS: Multivitamin W/ Minerals 1 TAB PO SCH (10:01)
[2017-07-04] MEDS: Ascorbic Acid 500 mg Chewable Tablet PO SCH ×2 (10:02→20:50)
[2017-07-04] MEDS: Polyethylene Glycol 3350 17 GM Packet PO SCH (10:02)
[2017-07-04] MEDS: Enoxaparin Sodium 30 MG/0.3 ML SYRINGE SC SCH (20:51)
[2017-07-04] MEDS: Famotidine 20 MG TAB PO SCH (20:51)
--- NOTE | 2017-07-04 23:38 | PRG ---
DATE OF SERVICE: 07/04/2017 SUBJECTIVE: Jael Newton is an 82-year-old female, postop day #7, hip fracture repair. She vocalized no complaint this evening. The patient is currently waiting acceptance for alf. Family is at bedside. OBJECTIVE: VITAL SIGNS: Reviewed and stable. GENERAL: The patient is resting in bed, in no acute distress. LUNGS: Breathing is nonlabored. ASSESSMENT AND PLAN: As documented in daily progress note. Continue care as ordered. Continue to m onitor. Await acceptance to alf.
--- NOTE | 2017-07-05 01:57 | DIS ---
DATE OF ADMISSION: 06/28/2017 DATE OF DISCHARGE: 07/05/2017 ADMISSION DIAGNOSES: 1. Status post ground level fall. 2. Left displaced femoral neck fracture. CONSULTATIONS: Orthopedic, Dr. Soni. PROCEDURE PERFORMED: Press-fit left hip monopolar hemiarthroplasty. SUMMARY: The patient is an 82-year-old woman, who reportedly fell out of bed the morning of critical access hospital. The patient was brought to the emergency department, evaluated, examined and noted to have the ab ove injuries. She was stable and able to go to the operating room the same day and she tolerated thi s procedure well. Approximately 36 hours later, the patient started having some short of respiratory issues on the floor and she was transferred down to the IM for [address] Eric felt this was most likely a component of sleep apnea. The patient had no issues in the IMCU and was eventually transferred back to surgical floor, where she continued to work with physical and occupati onal therapy. At the time of discharge, the patient was working with physical and occupational thera py. She was tolerating her diet. Her bowel function returned and her pain was controlled. She will be discharged to a long term facility, was supposed to be this afternoon, but it is now change d to tomorrow morning. The patient will follow up with Dr. Soni in 2 to 3 weeks or sooner as arnoldo peralta
[2017-07-05 04:55] VITALS: TEMP 97.8
[2017-07-05] MEDS: Acetaminophen 500 MG TAB PO SCH (06:24)
[2017-07-05] MEDS: traMADol HCl 50 MG TAB PO SCH (06:25)
[2017-07-05 08:33] VITALS: BP 183/76
--- NOTE | 2017-07-10 19:24 | EKG ---
Test Reason : Blood Pressure : / mmHG Vent. Rate : 066 BPM Atrial Rate : 066 BPM P-R Int : 150 ms QRS Dur : 096 ms QT Int : 146 ms P-R-T Axes : 055 -04 000 degrees QTc Int : 153 ms Sinus rhythm with Premature supraventricular complexes Nonspecific T wave abnormality Abnormal ECG When compared with ECG of 15-SEP-1994 06:48, Premature supraventricular complexes are now Present Nonspecific T wave abnormality now evident in Inferior leads QT has shortened Confirmed by DAMIEN BELLA (2) on 07/10/2017 7:24:10 PM Referred By: ZEENAT Confirmed By:DAMIEN BELLA
== END 2017-07-05 10:35 | DRG 469 ==
LOC: ERS 09:59 → SDC 16:24 → SJJU 17:00 → IMCU/EMU 06-30 10:56 → SURG A 07-02 20:55
PROVIDERS: ADMIT Surgery; ATTEND Surgery
PROC: 0SRS01A Replacement of Left Hip Joint, Femoral Surface with Metal Synthetic Substitute, Uncemented, Open Approach (ICD-10-PCS; principal; 2017-06-28)
DX: S72.002A Fracture of unspecified part of neck of left femur, initial encounter for closed fracture (principal); J96.01 Acute respiratory failure with hypoxia; J98.11 Atelectasis; D62 Acute posthemorrhagic anemia; E11.9 Type 2 diabetes mellitus without complications; F03.90 Unspecified dementia, unspecified severity, without behavioral disturbance, psychotic disturbance, mood disturbance, and anxiety; W06.XXXA Fall from bed, initial encounter; Y92.013 Bedroom of single-family (private) house as the place of occurrence of the external cause; I10 Essential (primary) hypertension; Z90.11 Acquired absence of right breast and nipple; Z79.84 Long term (current) use of oral hypoglycemic drugs; G47.31 Primary central sleep apnea; R41.0 Disorientation, unspecified; J06.9 Acute upper respiratory infection, unspecified; B97.4 Respiratory syncytial virus as the cause of diseases classified elsewhere; E87.6 Hypokalemia; E83.42 Hypomagnesemia; E83.39 Other disorders of phosphorus metabolism
CPT/HCPCS: 36415; 36416; 71045; 80048; 83735; 83880; 84100; 85025; 85027; 85610; 85730; 87633; 93005; 93010; 94640; G0390; G8978-GP-CL; G8978-GP-CM; G8979-GP-CK; G8987-GO-CM; G8988-GO-CK; J0131; J0360; J1650; J2405; J3010; J3370; J3475; J3480; J7050; J7620; Q0162; S0028